=== PATIENT | female | born 1990 ===

== ENCOUNTER 2021-01-23 05:20 | Emergency (ER) | payer OTHER, SELFPAY ==
[2021-01-23] MEDS ORDERED: ONDANSETRON 4 MG/2 ML VIAL ONE (05:46)
[2021-01-23] MEDS ORDERED: MORPHINE 2 MG/ML SYR ONE (05:46)
[2021-01-23] MEDS ORDERED: NA CHLORIDE 0.9% 1,000 ML ONE (05:47)
[2021-01-23] MEDS ORDERED: KETOROLAC 30 MG/ML INJ ONE (05:47)
[2021-01-23 06:02] LABS: Absolute Lymphocytes (CBC) 1.2 K/uL (0.7-4.9); Basophils % 0.8 % (0-1.3); Hematocrit 40.7 % (36.0-45.0); Lymphocytes % 13.6 % (15.3-44.8); MPV 7.6 fL (7.6-11.3); RBC Red Blood Cell Count 4.45 M/uL (3.86-4.86)
[2021-01-23 06:29] LABS: ALT/SGPT 18 U/L (12-78); AST/SGOT 16 U/L (15-37); Albumin 3.9 g/dL (3.4-5.0); Alkaline Phosphatase 73 U/L (45-117); BUN Blood Urea Nitrogen 9 mg/dL (7-18); Bicarbonate 25 mmol/L (21-32); Bilirubin Direct < 0.1 mg/dL (0-0.2); Bilirubin Total 0.3 mg/dL (0.2-1.0); Glucose Level 126 mg/dL (74-106); Lipase 105 U/L (73-393); Potassium 3.7 mmol/L (3.5-5.1); Protein, Total 7.7 g/dL (6.4-8.2); Sodium Level 136 mmol/L (136-145)
[2021-01-23 06:34] LABS: Urine Blood 3+ (Negative); Urine Glucose Negative (Negative); Urine Protein Negative (Negative); Urine Specific Gravity 1.015 (1.005-1.030)
[2021-01-23 06:38] LABS: Urine Specific Gravity/Preg 1.015 (1.005-1.030)
[2021-01-23] MEDS ORDERED: TAMSULOSIN 0.4 MG SR CAP ONE (06:45)
[2021-01-23] MEDS ORDERED: levoFLOXacin 250 MG TAB ONE (06:45)
[2021-01-23] MEDS ORDERED: NA CHLORIDE 0.9% 50 ML ONE (06:45)
[2021-01-23] MEDS ORDERED: CEFTRIAXONE 1000 MG/VIAL ONE (06:45)
[2021-01-23] MEDS ORDERED: levoFLOXacin 500 MG TAB ONE (06:46)
--- NOTE | 2021-01-23 07:19 | RAD REPORT ---
EXAM DESCRIPTION: CT - Stone Protocol - 01/23/2021 6:27 am CLINICAL HISTORY: Abd pain;Flank pain COMPARISON: <Comparisons> TECHNIQUE: Axial 3 mm thick images were obtained without oral or IV contrast. The [id number] span s the entirety of the system including uppermost abdomen and lung bases. All CT scans are performed using dose optimization technique as appropriate and may include automated exposure control or mA/KV adjustment according to patient size. FINDINGS: Mild to moderate hydronephrosis is present secondary to a 6 mm mid right ureter stone. Str anding is seen along the proximal ureter. No other obstructing or nonobstructing calculi seen. Distal to the stone the ureter is normal size. No left-sided hydronephrosis. No suspicious renal masses. Is odense masses and pyelonephritis are not excluded on a stone protocol CT scan. No significant adrenal finding. No urinary bladder suspicious finding. No uterine or ovarian suspicious finding. IUD is in place appearing well positioned in the fundal por tion of the uterus. Imaged portions of the liver, spleen and pancreas show no suspicious findings on non-contrast imaging . No gallbladder or biliary tree abnormality identified. No suspicious bowel findings. Appendix is normal. No hernia, mass or bulky lymphadenopathy noted. No free air, free fluid or inflammatory stranding. No significant bony abnormality. IMPRESSION: [id number] right-sided hydronephrosis secondary to a 6 millimeter sized obstructin g ureteral calculus. No other calculi identified. Isodense masses and pyelonephritis are not excluded on stone protocol technique.
--- NOTE | 2021-01-23 07:25 | ER ---
Nurse's Notes [facility] Name: Dulce Castillo Age: 30 yrs Sex: Female : 1990 Arrival Date: 01/23/2021 Time: 05:23 Bed 7 Private MD: Diagnosis: UTI/ Urinary tract infection, site not specified;Hydronephrosis with renal and ureteral calculous obstruction-6 MM RIGHT MID STONE Presentation: 01/23 05:36 Chief complaint: Patient states: she has had RLQ abd pain and R flank pain for 5 hours sm5 as well as vomiting. Coronavirus screen: Vaccine status: Patient reports being unvaccinated. Ebola Screen: Patient negative for fever greater than or equal to 101.5 degrees Fahrenheit, and additional compatible Ebola Virus Disease symptoms Patient denies exposure to infectious person. Patient denies travel to an Ebola-affected area in the 21 days before illness onset. Initial Sepsis Screen: Does the patient meet any 2 criteria? No. Patient's initial sepsis screen is negative. Does the patient have a suspected source of infection? No. Patient's initial sepsis screen is negative. Risk Assessment: Do you want to hurt yourself or someone else? Patient reports no desire to harm self or others. Onset of symptoms was January 23, 2021. 05:36 Method Of Arrival: Ambulatory 5 05:36 Acuity: ANSHU 3 sm5 Triage Assessment: 05:41 General: Appears in no apparent distress. Behavior is cooperative. Pain: Complains of sm5 pain in back and abdomen Quality of pain is described as sharp. Neuro: Level of Consciousness is awake, alert, Oriented to person, place, time, situation. Cardiovascular: No deficits noted. Respiratory: Airway is patent Trachea midline Respiratory effort is even, unlabored. GI: Reports vomiting. : No deficits noted. 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 - Social history:: Smoking status: Reported history of juuling and/or vaping. - Family history:: not pertinent. Screenin:37 Abuse screen: Denies threats or abuse. Denies injuries from another. Nutritional sm5 screening: No deficits noted. Tuberculosis screening: No symptoms or risk factors identified. Fall Risk No fall in past 12 months (0 pts). No secondary diagnosis (0 pts). IV access (20 points). Ambulatory Aid- None/Bed Rest/Nurse Assist (0 pts). Gait- Normal/Bed Rest/Wheelchair (0 pts) Mental Status- Oriented to own ability (0 pts). Total Keenan Fall Scale indicates No Risk (0-24 pts). Assessment: 05:42 GI: Bowel sounds present X 4 quads. Abd is soft. 5 07:00 Reassessment: RECD REPORT FROM LORNA LAW. 30YO WF P/W RLQ ABDOMINAL AND R FLANK PAIN. bp ALL CURRENT ORDERS COMPLETE, IVF INFUSING. 07:28 Reassessment: D/C ON HOLD FOR IVF COMPLETION. bp Vital Signs: 05:31 BP 132 / 84; Pulse 73; Resp 16; Temp 97.9; Pulse Ox 100% ; lt3 07:15 BP 108 / 63; Pulse 59; Resp 16; Pulse Ox 99% ; bp 08:03 BP 111 / 71; Pulse 64; Resp 15; Temp 98; Pulse Ox 98% ; bp 09:08 BP 98 / 69; Pulse 66; Resp 17; Temp 98.2(O); Pulse Ox 100% ; jh6 ED Course: 05:23 Patient arrived in ED. bp1 05:25 Baldemar Oneill MD is Attending Physician. suzan 05:36 Lorna Smith, RN is Primary Nurse. 5 05:37 Triage completed. 5 05:38 Arm band placed on right wrist. sm5 05:41 Patient has correct armband on for positive identification. Bed in low position. Call 5 light in reach. Side rails up X 1. 05:42 Inserted saline lock: 20 gauge in left antecubital area, using aseptic technique. Blood 5 collected. 05:58 CBC with Automated Diff Sent. sm5 05:58 Basic Metabolic Panel Sent. sm5 05:58 Hepatic Function Sent. sm5 05:58 Basic Metabolic Panel Sent. sm5 05:58 CBC with Diff Sent. sm5 05:59 Lipase Sent. 5 06:27 CT Stone Protocol In Process Unspecified. EDND 07:14 Primary Nurse role handed off by Lorna Smith RN bp 07:14 Bereket Robertson, ANI is Primary Nurse. bp 07:23 Thomas Sidhu MD is Referral Physician. suzan 09:08 IV discontinued, intact, bleeding controlled, No redness/swelling at site. Pressure jh6 dressing applied. 09:09 No provider procedures requiring assistance completed. jh6 Administered Medications: 05:56 Drug: NS 0.9% 1000 ml Route: IV; Rate: 1 bolus; Site: left antecubital; 5 05:56 Drug: morphine 2 mg Route: IVP; Site: left antecubital; 5 07:08 Follow up: Response: Pain is decreased bp 05:56 Drug: Zofran (Ondansetron) 4 mg Route: IVP; Site: left antecubital; 5 07:08 Follow up: Response: Nausea is decreased bp 05:58 Drug: Ketorolac 30 mg Route: IVP; Site: left antecubital; 5 07:08 Follow up: Response: Pain is decreased bp 06:52 Drug: Rocephin (cefTRIAXone) 1 grams Route: IV; Rate: per protocol; Site: left sm5 antecubital; 09:08 Follow up: Response: No adverse reaction jh6 06:52 Drug: Flomax (tamsulosin) 0.4 mg Route: PO; 5 07:08 Follow up: Response: No adverse reaction bp 09:07 Follow up: Response: No adverse reaction jh6 06:52 Drug: LevOfloxacin 750 mg Route: PO; sm5 07:08 Follow up: Response: No adverse reaction bp 09:07 Follow up: Response: No adverse reaction 6 07:15 Drug: NS 0.9% 1000 ml Route: IV; Rate: 1 bolus; Site: left antecubital; bp 09:06 Follow up: IV Status: Completed infusion 6 Outcome: 07:24 Discharge ordered by . suzan 09:09 Discharged to home ambulatory. [facility] 09:09 Condition: good 09:09 Discharge instructions given to patient, family, Instructed on discharge instructions, follow up and referral plans. Demonstrated understanding of instructions, follow-up care, medications, Prescriptions given X 3. 09:09 Patient left the ED. 6 Addendum: 01/26/2021 07:26 Addendum: Culture Results: Positive urine culture. No further action required. Bacteria s s sensitive to prescribed antibiotic. Signatures: Dispatcher [employer] EDMS Baldemar Oneill MD MD cha Smirch, Shelby, RN RN ss Bereket Robertson, RN RN Meseret Frey [facility] Torie Mcneill RN RN jh6 Sarah, Lorna RN RN 5 Aminta Izquierdo lt3 Corrections: (The following items were deleted from the chart) 01/23 07:18 07:00 Reassessment: RECD REPORT FROM LORNA LAW. 30YO WF P/W ABDOMINAL PAIN. ALL CURRENT bp ORDERS COMPLETE, IVF INFUSING bp
--- NOTE | 2021-01-23 07:25 | EDPHYS ---
Physician Documentation [facility] Name: Dulce Castillo Age: 30 yrs Sex: Female : 1990 Arrival Date: 01/23/2021 Time: 05:23 Bed 7 Private MD: NAYELI Physician Baldemar Oneill HPI: 01/23 05:46 This 30 yrs old Female presents to ER via Ambulatory with complaints of suzan Abdominal Pain. 05:46 The patient presents with abdominal pain in the lower abdomen, right lower quadrant. suzan Onset: The symptoms/episode began/occurred last night. The patient complains of pain in the right mid back and right low back. Location: right mid back and right low back. Onset: The symptoms/episode began/occurred 1 day(s) ago. Modifying factors: The symptoms are alleviated by nothing. the symptoms are aggravated by nothing. The symptoms radiate to both flanks. Associated signs and symptoms: Pertinent positives: nausea, vomiting. Modifying factors: The symptoms are alleviated by nothing, the symptoms are aggravated by nothing. 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 - Social history:: Smoking status: Reported history of juuling and/or vaping. - Family history:: not pertinent. ROS: 05:46 Constitutional: Negative for fever, chills, and weight loss, Eyes: Negative for injury, suzan pain, redness, and discharge, ENT: Negative for injury, pain, and discharge, Neck: Negative for injury, pain, and swelling, Cardiovascular: Negative for chest pain, palpitations, and edema, Respiratory: Negative for shortness of breath, cough, wheezing, and pleuritic chest pain, Back: Negative for injury and pain, : Negative for injury, bleeding, discharge, and swelling, MS/Extremity: Negative for injury and deformity, Skin: Negative for injury, rash, and discoloration, Neuro: Negative for headache, weakness, numbness, tingling, and seizure. 05:46 Abdomen/GI: Positive for abdominal pain, nausea and vomiting, of the posterior aspect of right lateral abdomen, anterior aspect of right lateral abdomen and right lower quadrant. Exam: 05:46 Constitutional: This is a well developed, well nourished patient who is awake, alert, suzan and in no acute distress. Head/Face: Normocephalic, atraumatic. Eyes: Pupils equal round and reactive to light, extra-ocular motions intact. Lids and lashes normal. Conjunctiva and sclera are non-icteric and not injected. Cornea within normal limits. Periorbital areas with no swelling, redness, or edema. ENT: Nares patent. No nasal discharge, no septal abnormalities noted. Tympanic membranes are normal and external auditory canals are clear. Oropharynx with no redness, swelling, or masses, exudates, or evidence of obstruction, uvula midline. Mucous membranes moist. Neck: Trachea midline, no thyromegaly or masses palpated, and no cervical lymphadenopathy. Supple, full range of motion without nuchal rigidity, or vertebral point tenderness. No Meningismus. Chest/axilla: Normal chest wall appearance and motion. Nontender with no deformity. No lesions are appreciated. Cardiovascular: Regular rate and rhythm with a normal S1 and S2. No gallops, murmurs, or rubs. Normal PMI, no JVD. No pulse deficits. Respiratory: Lungs have equal breath sounds bilaterally, clear to auscultation and percussion. No rales, rhonchi or wheezes noted. No increased work of breathing, no retractions or nasal flaring. Back: No spinal tenderness. No costovertebral tenderness. Full range of motion. Female : Normal external genitalia. Skin: Warm, dry with normal turgor. Normal color with no rashes, no lesions, and no evidence of cellulitis. MS/ Extremity: Pulses equal, no cyanosis. Neurovascular intact. Full, normal range of motion. Neuro: Awake and alert, GCS 15, oriented to person, place, time, and situation. Cranial nerves II-XII grossly intact. Motor strength 5/5 in all extremities. Sensory grossly intact. Cerebellar exam normal. Normal gait. Psych: Awake, alert, with orientation to person, place and time. Behavior, mood, and affect are within normal limits. 05:46 Abdomen/GI: Inspection: abdomen appears normal, Bowel sounds: normal, Palpation: mild abdominal tenderness, in the right lower quadrant. Vital Signs: 05:31 BP 132 / 84; Pulse 73; Resp 16; Temp 97.9; Pulse Ox 100% ; lt3 07:15 BP 108 / 63; Pulse 59; Resp 16; Pulse Ox 99% ; bp 08:03 BP 111 / 71; Pulse 64; Resp 15; Temp 98; Pulse Ox 98% ; bp 09:08 BP 98 / 69; Pulse 66; Resp 17; Temp 98.2(O); Pulse Ox 100% ; jh6 MDM: 05:25 Patient medically screened. [facility] 05:49 Differential diagnosis: nephrolithiasis, pyelonephritis, UTI, diverticulitis, suzan pancreatitis, appendicitis, Cholelithiasis, Ectopic , gastroesophageal reflux disease, non-specific abd pain. Data reviewed: vital signs, nurses notes, lab test result(s), CBC, electrolytes, hepatic panel, urinalysis. Data interpreted: personnel monitor: not applicable for this patient encounter. rate is 73 beats/min, rhythm is regular, Pulse oximetry: is not applicable for this patient encounter. on. Counseling: I had a detailed discussion with the patient and/or guardian regarding: the historical points, exam findings, and any diagnostic results supporting the discharge/admit diagnosis, lab results, radiology results, the need for outpatient follow up. 01/23 05:42 Order name: Basic Metabolic Panel [facility] 01/23 05:42 Order name: CBC with Diff [facility] 01/23 05:42 Order name: Hepatic Function; Complete Time: 06:39 [facility] 01/23 05:42 Order name: Lipase; Complete Time: 06:39 [facility] 01/23 05:42 Order name: Urine Culture [facility] 01/23 05:43 Order name: Basic Metabolic Panel; Complete Time: 06:39 [facility] 01/23 05:42 Order name: CT Stone Protocol; Complete Time: 07:22 [facility] 01/23 05:43 Order name: CBC with Automated Diff; Complete Time: 06:21 [facility] 01/23 06:33 Order name: Urine Dipstick-Ancillary; Complete Time: 06:39 [facility] 01/23 06:35 Order name: Urine --Ancillary (enter results); Complete Time: 06:39 01/23 05:42 Order name: IV Saline Lock; Complete Time: 05:42 [facility] 01/23 05:42 Order name: Labs collected and sent; Complete Time: 05:58 [facility] 01/23 05:42 Order name: Urine Dipstick-Ancillary (obtain specimen); Complete Time: 07:00 [facility] 01/23 05:42 Order name: Urine Test (obtain specimen); Complete Time: 07:00 [facility] Administered Medications: 05:56 Drug: NS 0.9% 1000 ml Route: IV; Rate: 1 bolus; Site: left antecubital; 5 05:56 Drug: morphine 2 mg Route: IVP; Site: left antecubital; 5 07:08 Follow up: Response: Pain is decreased bp 05:56 Drug: Zofran (Ondansetron) 4 mg Route: IVP; Site: left antecubital; 5 07:08 Follow up: Response: Nausea is decreased bp 05:58 Drug: Ketorolac 30 mg Route: IVP; Site: left antecubital; 5 07:08 Follow up: Response: Pain is decreased bp 06:52 Drug: Rocephin (cefTRIAXone) 1 grams Route: IV; Rate: per protocol; Site: left sm5 antecubital; 09:08 Follow up: Response: No adverse reaction jh6 06:52 Drug: Flomax (tamsulosin) 0.4 mg Route: PO; 5 07:08 Follow up: Response: No adverse reaction bp 09:07 Follow up: Response: No adverse reaction jh6 06:52 Drug: LevOfloxacin 750 mg Route: PO; 5 07:08 Follow up: Response: No adverse reaction bp 09:07 Follow up: Response: No adverse reaction 6 07:15 Drug: NS 0.9% 1000 ml Route: IV; Rate: 1 bolus; Site: left antecubital; bp 09:06 Follow up: IV Status: Completed infusion jh6 Disposition Summary: 01/23/21 07:24 Discharge Ordered Location: Home suzan Problem: new suzan Symptoms: have improved suzan Condition: Stable suzan Diagnosis - UTI/ Urinary tract infection, site not specified suzan - Hydronephrosis with renal and ureteral calculous obstruction - 6 MM RIGHT MID STONE suzan Followup: suzan - With: Private Physician - When: 2 - 3 days - Reason: Recheck today's complaints, Continuance of care, Re-evaluation by your physician Followup: suzan - With: - When: 2 - 3 days - Reason: Recheck today's complaints, Continuance of care, Re-evaluation by your physician Discharge Instructions: - Discharge Summary Sheet suzan - Dysuria suzan - Kidney Stones suzan - Urinary Tract Infection, Adult suzan - Kidney Stones, Xcim-ma-Josx suzan - Urinary Tract Infection, Adult, Kgce-[id number] suzan - Hydronephrosis suzan - Dietary Guidelines to Help Prevent Kidney Stones suzan Forms: - Medication Reconciliation Form [facility] - Thank You Letter suzan - Antibiotic Education suzan - Prescription Opioid Use suzan Prescriptions: - tamsulosin 0.4 mg Oral capsule - take 1 capsule by ORAL route once daily 1/2 hour following the same meal each [facility] day; 14 capsule; Refills: 0, Product Selection Permitted - Zofran 4 mg Oral Tablet - take 1 tablet by ORAL route every 12 hours As needed; 20 tablet; Refills: 0, [facility] Product Selection Permitted - levofloxacin 500 mg Oral Tablet - take 1 tablet by ORAL route once daily for 7 days; 7 tablet; Refills: 0, [facility] Product Selection Permitted - Tylenol-Codeine #3 300 mg-30 mg Oral - take 2 tablet by ORAL route every 4-6 hours; 15 tablet; Refills: 0, Product [facility] Selection Permitted - ketorolac 10 mg Oral tablet - take 1 tablet by ORAL route every 4 hours not to exceed 40mg in 24hrs for up to [facility] 5 days total use; 12 tablet; Refills: 0, Product Selection Permitted Signatures: Dispatcher [employer] Baldemar Young MD MD cha Peltier, Brian, RN RN Lorna Rodriguez RN RN sm5 [facility] health[facility]ie roth RN jh6
[2021-01-23 09:21] VITALS: BP 98/69; TEMP 98.2; O2SAT 100
== END 2021-01-23 09:09 | disposition home or self-care (01) ==
LOC: ER 05:20
DX: N39.0 Urinary tract infection, site not specified (principal); N13.2 Hydronephrosis with renal and ureteral calculous obstruction
CPT/HCPCS: 36415; 74176; 76377; 80048; 80076; 81003; 81025; 83690; 85025; 87077; 87086; 87088; 87186; 96361; 96374; 96375; 99284; J2270; J2405; J7030